=== PATIENT | female | born 1985 | race Caucasian/White ===

== ENCOUNTER 2017-08-07 05:58 | Emergency (ER) | payer MEDICAID, OTHER ==
[~2017-08-07] VITALS: Ht 167.6 cm; Wt 80.0 kg
[2017-08-07 06:01] VITALS: Ht 167.6 cm; Wt 80.0 kg
[2017-08-07] MEDS ORDERED: SULF1TAB31 PO (06:20)
[2017-08-07] MEDS ORDERED: TRIA15CR55 TOP (06:20)
[2017-08-07] MEDS ORDERED: IBUP-1542 PO (06:20)
--- NOTE | 2017-08-07 06:26 | ERD ---
ER Documentation Chief Complaint Chief Complaint Selling and pain on the left arm with increased redness and soreness HPI This 32-year-old female presents with some pain and swelling in her left forearm. This been for the last 1-2 days. She has some sensation of numbness in her left hand which may have started before the lesion as well. She may have been bitten by an insect or possibly had a puncture wound. She denies any restricted range of motion or weakness or fevers. Tetanus is up-to-date. ROS All systems reviewed and are negative except as per history of present illness. Medications Home Meds Active Scripts Ibuprofen* (Motrin*) 600 Mg Tab, 600 MG PO Q6, #15 TAB Prov:LEIF CONTRERAS MD 08/07/17 Triamcinolone Acetonide (Triamcinolone Acetonide) 0.1% - 15 Gm Cream.gm., 1 APPLIC TOP QID for 7 Days, #1 TUB Prov:LEIF CONTRERAS MD 08/07/17 Sulfamethoxazole/Trimethoprim* (Bactrim Ds* Tablet) 1 Each Tablet, 1 TAB PO BID for 7 Days, #14 TAB Prov:LEIF CONTRERAS MD 08/07/17 Allergies Allergies: Coded Allergies: No Known Allergy (Unverified , 01/12/15) PMhx/Soc Medical and Surgical Hx: pt denies Surgical Hx History of Surgery: No Anesthesia Reaction: No Hx Neurological Disorder: No Hx Respiratory Disorders: No Hx Cardiac Disorders: No Hx Psychiatric Problems: Yes (anxiety) Hx Miscellaneous Medical Probl: No Hx Alcohol Use: No Hx Substance Use: No Hx Tobacco Use: No Smoking Status: Current some day smoker Physical Exam Vitals Vital Signs Date Time Temp Pulse Resp B/P Pulse Ox O2 Delivery O2 Flow Rate FiO2 08/07/17 06:01 97.1 84 20 121/64 99 Physical Exam Const: [] Alert, [id number]. Head: Atraumatic Eyes: Normal Conjunctiva ENT: Normal External Ears, Nose and Mouth. Neck: Full range of motion..~ No meningismus. Resp: Clear to auscultation bilaterally Cardio: Regular rate and rhythm, no murmurs Abd: Soft, non tender, non distended. Normal bowel sounds Skin: No petechiae or rashes. There is 1 mm pustule on the dorsum of the left forearm. There is approximately 3 cm of surrounding irritation without significant warmth or streaking no fluctuance. Left upper extremity is neurovascular intact without deficits Back: No midline or flank tenderness Ext: No cyanosis, or edema Neur: Awake and alert Psych: Normal Mood and Affect Results 24 hrs Current Medications Medications (Trade) Dose Ordered Sig/Dale Route PRN Reason Start Time Stop Time Status Last Admin Dose Admin Trimethoprim/ Sulfamethoxazole (Bactrim (Ds)) 1 tab ONCE ONCE PO 08/07/17 06:30 08/07/17 06:31 08/07/17 06:18 Ibuprofen (Motrin) 600 mg ONCE ONCE PO 08/07/17 06:30 08/07/17 06:31 08/07/17 06:18 Procedures/MDM Patient presents with some redness and a small pustule on left forearm. Clinically it appears to be possibly a local reaction to insect bite or small puncture wound or splinter which may be secondarily infected. She is given Bactrim double strength, ibuprofen. The pustule was unroofed without appreciable foreign body. Patient was discharged home with Bactrim, triamcinolone, ibuprofen, instructions for wound care and 2 day recheck for increased redness, swelling, fevers, new worsening symptoms. Herpetic lesion considered but not typical. There is no evidence of sepsis, anaphylaxis, purpura, neurovascular compromise, abscess, significant cellulitis but patient should recheck as directed or with primary care doctor. Departure Diagnosis: Primary Impression: Folliculitis Condition: Stable Patient Instructions: Folliculitis, Allergic Reaction, Insect (Local) Additional Instructions: Appears to be local reaction or early infection to insect bite or possibly splinter. Apply warm compresses at home. Recheck in 2 days for worsening redness, fevers, new or worsening symptoms. LEIF CONTRERAS MD Aug 07, 2017 06:26
[2017-08-07] MEDS ORDERED: IBUPROFEN 600 MG TAB PO ONE (06:30)
[2017-08-07] MEDS ORDERED: TRIMETHOPRIM/SULFAMETHOX (DS) TAB PO ONE (06:30)
== END 2017-08-07 06:37 | disposition home or self-care (01) ==
LOC: FTE 05:58
DX: L73.9 Follicular disorder, unspecified (principal); F17.210 Nicotine dependence, cigarettes, uncomplicated
CPT/HCPCS: 99284